=== PATIENT | male | born 2000 | race Two or more races ===

== ENCOUNTER 2024-09-05 09:23 | Inpatient (IN) | payer MEDICAID, OTHER ==
[~2024-09-05] VITALS: Ht 172.7 cm; Wt 93.4 kg
[2024-09-05 09:54] LABS: BASOPHILS # (AUTO) 0.1 K/uL (0.0-0.2); BASOPHILS % (AUTO) 0.4 % (0.0-2.0); EOSINOPHILS # (AUTO) 0.5 K/uL (0.0-0.7); EOSINOPHILS % (AUTO) 3.9 % (0.0-6.0); HEMATOCRIT 45 % (39-51); HEMOGLOBIN 15.1 g/dL (13.5-17.5); LYMPHOCYTES # (AUTO) 3.4 K/uL (0.8-4.8); LYMPHOCYTES % (AUTO) 26.7 % (20.0-44.0); MEAN CORPUSCULAR HEMOGLOBIN 29 PG (26.0-33.0); MEAN CORPUSCULAR HGB CONC 33 g/dl (31.0-36.0); MEAN CORPUSCULAR VOLUME 86 fL (80-96); MONOCYTES # (AUTO) 0.7 K/uL (0.1-1.30); MONOCYTES % (AUTO) 5.3 % (2.0-12.0); NEUTROPHILS # (AUTO) 8.1 K/uL (1.8-8.9); NEUTROPHILS % (AUTO) 63.7 % (43.0-81.0); PLATELET COUNT (AUTO) 379 K/uL (150-450); RED BLOOD CELL COUNT(AUTO) 5.24 MIL/uL (4.5-6.0); RED CELL DISTRIBUTION WIDTH 13.1 % (11.5-15.0); WHITE BLOOD COUNT (AUTO) 12.8 K/uL (4.3-11.0)
[2024-09-05 10:05] LABS: CALCIUM, SERUM 9.3 mg/dL (8.5-10.1); CREATININE 0.8 mg/dL (0.6-1.3); POTASSIUM 3.5 mmol/L (3.5-5.1)
[2024-09-05 10:26] LABS: EOSINOPHILS % (MANUAL) 5 % (0-4); LYMPHOCYTES % (MANUAL) 26 % (16-48); METAMYELOCYTES % 2 % (0-0); MONOCYTES % (MANUAL) 1 % (0-11.0); NEUTROPHILS % (MANUAL) 66 (42-76)
[2024-09-05 10:30] LABS: ANISOCYTOSIS 1+; PLATELET ESTIMATE ADEQUATE; STOMATOCYTES 1+
[2024-09-05] MEDS ORDERED: ONDANSETRON HCL/PF 4 MG/2 ML VIAL ONE (10:56)
[2024-09-05] MEDS ORDERED: MORPHINE SULFATE INJ 2 MG/ML DISP.SYRIN ONE (10:56)
[2024-09-05] MEDS: ONDANSETRON HCL/PF 4 MG/2 ML VIAL IVP ONE (11:15)
[2024-09-05] MEDS: MORPHINE SULFATE INJ 2 MG/ML DISP.SYRIN IV ONE (11:16)
[2024-09-05 13:00] VITALS: O2SAT 98
[2024-09-05] MEDS ORDERED: ONDANSETRON HCL/PF 4 MG/2 ML VIAL IVP PRN (14:30)
[2024-09-05] MEDS ORDERED: MAG HYDROX/AL HYDROX/SIMETH 30 ML UDC PO PRN (14:30)
[2024-09-05 16:00] VITALS: BP 127/75; TEMP 99.1; O2SAT 97
[2024-09-05 20:00] VITALS: BP 128/56; TEMP 99.7; O2SAT 97
[2024-09-05] MEDS: ENOXAPARIN SODIUM 40 MG/0.4 ML DISP.SYRIN SQ SCH (20:43)
[2024-09-05] MEDS: HYDROCODONE/APAP 5/325MG TABLET PO PRN (21:01)
[2024-09-06] VITALS: BP 135/84; TEMP 98.4; O2SAT 98
[2024-09-06] MEDS: ACETAMINOPHEN 325 MG TABLET PO PRN (00:13)
[2024-09-06 04:00] VITALS: BP 121/81; TEMP 98.1; O2SAT 98
[2024-09-06 06:29] LABS: BASOPHILS % (AUTO) 0.4 % (0.0-2.0); EOSINOPHILS # (AUTO) 0.1 K/uL (0.0-0.7); HEMATOCRIT 43 % (39-51); HEMOGLOBIN 14.7 g/dL (13.5-17.5); LYMPHOCYTES # (AUTO) 2.2 K/uL (0.8-4.8); LYMPHOCYTES % (AUTO) 22.2 % (20.0-44.0); MEAN CORPUSCULAR HEMOGLOBIN 30 PG (26.0-33.0); MEAN CORPUSCULAR HGB CONC 34 g/dl (31.0-36.0); MEAN CORPUSCULAR VOLUME 87 fL (80-96); MONOCYTES % (AUTO) 10.6 % (2.0-12.0); NEUTROPHILS # (AUTO) 6.4 K/uL (1.8-8.9); NEUTROPHILS % (AUTO) 65.8 % (43.0-81.0); PLATELET COUNT (AUTO) 285 K/uL (150-450); RED BLOOD CELL COUNT(AUTO) 4.93 MIL/uL (4.5-6.0); WHITE BLOOD COUNT (AUTO) 9.7 K/uL (4.3-11.0)
[2024-09-06 07:10] LABS: CALCIUM, SERUM 8.9 mg/dL (8.5-10.1); CREATININE 0.6 mg/dL (0.6-1.3); MAGNESIUM 2.4 mg/dL (1.8-2.4); POTASSIUM 3.8 mmol/L (3.5-5.1)
[2024-09-06] MEDS ORDERED: ANESTHESIA TRAY IN PYXIS 1 EA TRAY MC ONE (13:57)
[2024-09-06] MEDS ORDERED: BUPIVACAINE 0.5 % PF 150 MG/30 ML VIAL ONE (13:57)
[2024-09-06] MEDS ORDERED: VANCOMYCIN 1 GM VIAL ONE (14:04)
[2024-09-06] MEDS ORDERED: FENTANYL PF 100MCG/2ML AMPUL ONE (16:29)
[2024-09-06] MEDS ORDERED: HYDROMORPHONE INJ 2 MG/ML DISP.SYRIN ONE (16:30)
[2024-09-06] MEDS ORDERED: ROCURONIUM BROMIDE 50 MG/5 ML ONE (16:30)
[2024-09-06] MEDS ORDERED: MIDAZOLAM HCL 2 MG/2ML VIAL ONE (16:40)
[2024-09-06] MEDS ORDERED: HYDROCODONE/APAP 10/325MG TABLET PO PRN (20:00)
[2024-09-06] MEDS ORDERED: MORPHINE SULFATE INJ 4 MG/ML DISP.SYRIN IV PRN (20:00)
[2024-09-06 20:36] VITALS: BP 144/96; TEMP 97.8; O2SAT 95
[2024-09-06] MEDS: IV D5/0.45 NACL W/20 MEQ KCL 1L IV SCH (21:13)
[2024-09-07] MEDS: ANCEF 1 GM/50 ML D5W IV SCH (02:45)
[2024-09-07 07:00] VITALS: BP 128/76; TEMP 98.6; O2SAT 94
[2024-09-07] MEDS ORDERED: HYDR-3980 PO (12:00)
== END 2024-09-07 16:15 | disposition home health service (06) | DRG 313 ==
LOC: ER 09:30 → MED 13:26
PROVIDERS: ADMIT Nurse Practitioner Acute Care; ATTEND Internal Medicine
PROC: 0QSJ04Z Reposition Right Fibula with Internal Fixation Device, Open Approach (ICD-10-PCS; principal; 2024-09-06)
PROC: 0QSG04Z Reposition Right Tibia with Internal Fixation Device, Open Approach (ICD-10-PCS; 2024-09-06)
DX: S82.841A Displaced bimalleolar fracture of right lower leg, initial encounter for closed fracture (principal); D68.69 Other thrombophilia; S00.03XA Contusion of scalp, initial encounter; D72.829 Elevated white blood cell count, unspecified; F84.0 Autistic disorder; S93.01XA Subluxation of right ankle joint, initial encounter; W20.8XXA Other cause of strike by thrown, projected or falling object, initial encounter; Y92.830 Public park as the place of occurrence of the external cause; Z74.09 Other reduced mobility; S96.991A Other specified injury of unspecified muscle and tendon at ankle and foot level, right foot, initial encounter
CPT/HCPCS: 36415; 70450-TC; 73590-TC; 73610-TC; 80048-TC; 83735-TC; 84100-TC; 85025-TC; 97110-TC; 97116-TC; 97530-TC; A4223; G0378; J0330; J0690; J1100; J1171; J1650; J2250; J2270; J2405; J2704; J2765; J3010; J3370; J3480; J3490; J7030; J7040; J7050; J7060